=== PATIENT | male | born 1945 | race Caucasian/White ===

== ENCOUNTER 2023-12-17 09:14 | Outpatient (OUT) | payer MEDICARE, SELFPAY ==
--- NOTE | 2023-12-17 09:25 | CT_ITS ---
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 TECHNIQUE: Axial noncontrast CT imaging of the temporal bones was performed with coronal reformats. This CT exam was performed using one or more of the following dose reduction techniques: Automated exposure control, adjustment of the MA and/or kV according to patient size, or use of iterative reconstruction technique. FINDINGS: RIGHT SIDE External auditory canal is clear. Mastoid air cells are normally aerated. Tympanic membrane has normal appearance. Middle ear cavity is normally aerated. Ossicles appear normal. No bony erosion. Internal auditory canal, cochlea, vestibule, semicircular canals, vestibular and cochlear aqueducts appear normal. Normal appearance of the petrous course of the facial nerve. No evidence of aberrant carotid or jugular dehiscence. LEFT SIDE External auditory canal is clear. Prior left canal wall up mastoidectomy. There is air filling the mastoidectomy bowl with subtotal opacification of the remaining dependent left mastoid air cells with mild sclerosis but without substantial loss of intravascular septa. Postsurgical changes of the ossicles with thickening of the tympanic membrane. No overt residual cholesteatoma is definitely seen. Internal auditory canal, cochlea, vestibule, semicircular canals, vestibular and cochlear aqueducts appear normal. Normal appearance of the petrous course of the facial nerve. No evidence of aberrant carotid or jugular dehiscence. Additional comments: Mucosal thickening of the bilateral inferior maxillary sinuses. CT/CT int auditory canals w/o con IMPRESSION: 1. Post surgical change involving the left temporal bone with prior canal wall up mastoidectomy and post surgical changes of the ossicles without overt residual cholesteatoma seen. 2. Subtotal opacification of the remaining dependent left mastoid air cells with associated sclerosis consistent with sequela of chronic mastoiditis. No evidence for coalescent mastoiditis at this time. 3. Unremarkable appearance of the right temporal bone. Electronically authenticated by: SHANNAN RICCI Date: 12/25/2023 09:10
== END 2023-12-17 09:15 | disposition home or self-care (01) ==
LOC: CT 09:18
PROVIDERS: PCP Family Medicine
DX: H71.12 Cholesteatoma of tympanum, left ear (principal)
CPT/HCPCS: 70480